=== PATIENT | female | born 1940 | race Caucasian/White ===

== ENCOUNTER → 2016-09-06 | Outpatient (CLI) | payer MEDICARE, OTHER ==
[~2016-09-06] MED LIST: APIX5TAB PO; LORA0.5T PO; LOSA50TA6 PO; OMEP20CA9 PO; OMEP20TA2 PO; ONDA4TAB7 PO; OXYC1TAB7 PO; PROC10TA PO
== END | disposition home or self-care (01) ==
LOC: RAD 10:51
PROVIDERS: ATTEND Internal Medicine
DX: C34.2 Malignant neoplasm of middle lobe, bronchus or lung (principal); J90 Pleural effusion, not elsewhere classified; E04.1 Nontoxic single thyroid nodule; M48.54XA Collapsed vertebra, not elsewhere classified, thoracic region, initial encounter for fracture; M50.30 Other cervical disc degeneration, unspecified cervical region; M47.892 Other spondylosis, cervical region; M25.78 Osteophyte, vertebrae; R59.0 Localized enlarged lymph nodes; R07.9 Chest pain, unspecified; R07.81 Pleurodynia
CPT/HCPCS: 71250; 72125

== ENCOUNTER 2016-09-11 13:38 | Emergency (ER) | payer MEDICARE, OTHER ==
[~2016-09-11] VITALS: Ht 162.6 cm; Wt 73.0 kg
[2016-09-11] MEDS ORDERED: FAMOTIDINE 20 MG/2 ML IVP ONE (14:00)
[2016-09-11] MEDS ORDERED: SODIUM CHLORIDE FLUSH 10ML SYR IVF ONE (14:00)
[2016-09-11] MEDS ORDERED: SODIUM CHLORIDE 0.9% 1,000ML IVBOLUS ONE ×2 (14:00→15:00)
[2016-09-11] MEDS ORDERED: FAMOTIDINE 20 MG/2 ML ONE (14:20)
[2016-09-11 14:34] LABS: ASPARTATE AMINO TRANSFERASE 9 U/L (15-37); BLOOD UREA NITROGEN 23 mg/dL (7-18)
[2016-09-11] MEDS: ONDANSETRON 2MG/ML, 2ML IVPush ONE ×2 (14:38→18:09)
[2016-09-11] MEDS ORDERED: ACETAMINOPHEN 500 MG TABLET ONE (16:13)
[2016-09-11] MEDS ORDERED: ACETAMINOPHEN 325 MG TABLET PO ONE (16:30)
[2016-09-11] MEDS ORDERED: PRED5TAB25 PO (16:50)
[2016-09-11] MEDS ORDERED: SULF1TAB24 PO (16:51)
[2016-09-11] MEDS ORDERED: GABA300C10 PO (17:00)
[2016-09-11] MEDS ORDERED: ONDANSETRON 2MG/ML, 2ML ONE (18:04)
[2016-09-11 19:49] VITALS: BP 137/74
== END 2016-09-11 19:51 | disposition home or self-care (01) ==
LOC: ED 14:47
DX: E86.0 Dehydration (principal); R51 Headache; R11.2 Nausea with vomiting, unspecified; I10 Essential (primary) hypertension; Z87.891 Personal history of nicotine dependence; Z90.710 Acquired absence of both cervix and uterus
CPT/HCPCS: 36415; 70450; 74176; 80053; 81003; 83690; 85025; 85610; 85730; 96361; 96374; 96375; 99285; J2405; J7030; S0028

== ENCOUNTER 2016-09-26 22:59 | Inpatient (IN) | payer MEDICARE, OTHER ==
[~2016-09-26] VITALS: Ht 162.6 cm; Wt 72.5 kg
[~2016-09-26 22:59] MED LIST changes: +GABA300C10 PO; +PRED5TAB25 PO; +SULF1TAB24 PO
[2016-09-26] MEDS ORDERED: HYDR-3240 PO (23:14)
[2016-09-26] MEDS ORDERED: SODIUM CHLORIDE 0.9% 1,000ML IVBOLUS ONE (23:30)
[2016-09-26 23:43] LABS: BLOOD UREA NITROGEN 19 mg/dL (7-18)
[2016-09-26 23:48] LABS: IS PT STATUS REG ER OR PRE ER? YES
[2016-09-26] MEDS ORDERED: methylPREDNISolone SOD SUCC 125 MG/2 ML IVPush STA (23:49)
[2016-09-27] MEDS ORDERED: DIPHENHYDRAMINE 50 MG/ML, 1ML IVPush ONE
[2016-09-27] MEDS ORDERED: methylPREDNISolone SOD SUCC 125 MG/2 ML ONE (00:06)
[2016-09-27] MEDS ORDERED: DIPHENHYDRAMINE 50 MG/ML, 1ML ONE (00:07)
[2016-09-27] MEDS ORDERED: MORPHINE SULFATE 4 MG/ML, 1ML ONE (02:45)
[2016-09-27] MEDS ORDERED: ONDANSETRON 2MG/ML, 2ML ONE (02:45)
[2016-09-27] MEDS ORDERED: ONDANSETRON 2MG/ML, 2ML IVPush ONE (03:00)
[2016-09-27] MEDS ORDERED: MORPHINE SULFATE 4 MG/ML, 1ML IVPush PRN (03:00)
[2016-09-27] MEDS ORDERED: MORPHINE SULFATE 4 MG/ML, 1ML IVPush ONE ×2 (03:00→06:00)
[2016-09-27] MEDS ORDERED: ONDANSETRON 2MG/ML, 2ML IVPush PRN ×2 (03:00→09:00)
[2016-09-27] MEDS ORDERED: OMNIPAQUE 350 MG/ML, 150 ML BOTTLE ONE (04:56)
[2016-09-27 05:00] VITALS: BP 149/93
[2016-09-27] MEDS ORDERED: LORazepam 0.5MG TABLET PO PRN (08:00)
[2016-09-27 08:59] VITALS: BP 147/96
[2016-09-27] MEDS: HYDROcodone/APAP 5/325 TABLET PO PRN ×4 (09:00→21:22)
[2016-09-27] MEDS: ONDANSETRON ODT 4 MG PO PRN ×2 (09:02→15:11)
[2016-09-27] MEDS: GABAPENTIN 300 MG CAPSULE PO SCH ×3 (09:08→20:48)
[2016-09-27] MEDS: APIXABAN 5 MG TABLET PO SCH ×3 (09:09→20:48)
[2016-09-27 09:15] LABS: BLOOD UREA NITROGEN 19 mg/dL (7-18)
[2016-09-27] MEDS ORDERED: LIDOCAINE 1%, 20ML ONE (10:57)
[2016-09-27] MEDS ORDERED: SODIUM BICARBONATE 4.2%, 5ML ONE (10:57)
[2016-09-27 11:46] LABS: CYTOLOGY BODY FLUID RECD INTO PATHOLOGY; CYTOLOGY BODY FLUID SOURCE PLEURAL FLUID
[2016-09-27] MEDS: PREDNISOLONE 5 MG PO SCH (13:16)
[2016-09-27 13:29] VITALS: BP 130/83
[2016-09-27 13:35] LABS: CELLS COUNTED 131; DILUTION 1; WBC SQUARES COUNTED 1
[2016-09-27 20:52] VITALS: BP 129/83
[2016-09-28 01:02] VITALS: BP 126/77
[2016-09-28] MEDS: HYDROcodone/APAP 5/325 TABLET PO PRN ×6 (04:37→21:35)
[2016-09-28 07:40] VITALS: BP 114/72
[2016-09-28] MEDS: APIXABAN 5 MG TABLET PO SCH ×2 (08:46→20:46)
[2016-09-28] MEDS: GABAPENTIN 300 MG CAPSULE PO SCH ×3 (08:46→20:46)
[2016-09-28] MEDS: PREDNISOLONE 5 MG PO SCH (08:54)
[2016-09-28 12:22] VITALS: BP 119/72
[2016-09-28] MEDS ORDERED: IBUPROFEN 200 MG TABLET PO ONE (12:30)
[2016-09-28] MEDS ORDERED: ACETAMINOPHEN 325 MG TABLET PO PRN (12:30)
[2016-09-28 20:25] VITALS: BP 129/82
[2016-09-28] MEDS: ONDANSETRON ODT 4 MG PO PRN (20:45)
[2016-09-29 00:38] VITALS: BP 127/77
[2016-09-29] MEDS: HYDROcodone/APAP 5/325 TABLET PO PRN ×2 (01:13→05:26)
[2016-09-29 08:30] VITALS: BP 121/67
[2016-09-29] MEDS: GABAPENTIN 300 MG CAPSULE PO SCH (09:45)
[2016-09-29] MEDS: APIXABAN 5 MG TABLET PO SCH (09:45)
[2016-09-29] MEDS: PREDNISOLONE 5 MG PO SCH (09:46)
[2016-09-29] MEDS ORDERED: OMEPRAZOLE 20 MG CAPSULE.DR PO SCH (09:48)
[2016-09-29] MEDS: OXYcodone IR 5MG TABLET PO PRN ×2 (10:19→14:56)
[2016-09-29] MEDS ORDERED: OXYC5TAB3 PO (11:00)
== END 2016-09-29 15:10 | disposition home or self-care (01) | DRG 181 ==
LOC: ED 23:00 → EDIP 09-27 02:44 → 3NW 09-27 03:35
PROVIDERS: ADMIT Internal Medicine; ATTEND Internal Medicine
PROC: 0W993ZZ Drainage of Right Pleural Cavity, Percutaneous Approach (ICD-10-PCS; principal; 2016-09-27)
PROC: BB4BZZZ Ultrasonography of Pleura (ICD-10-PCS; 2016-09-27)
DX: C34.90 Malignant neoplasm of unspecified part of unspecified bronchus or lung (principal); R65.10 Systemic inflammatory response syndrome (SIRS) of non-infectious origin without acute organ dysfunction; D68.69 Other thrombophilia; M48.54XA Collapsed vertebra, not elsewhere classified, thoracic region, initial encounter for fracture; J91.0 Malignant pleural effusion; I10 Essential (primary) hypertension; M25.511 Pain in right shoulder; J38.3 Other diseases of vocal cords; R07.89 Other chest pain; M13.811 Other specified arthritis, right shoulder; Z79.01 Long term (current) use of anticoagulants; Z85.118 Personal history of other malignant neoplasm of bronchus and lung; Z86.711 Personal history of pulmonary embolism; Z86.718 Personal history of other venous thrombosis and embolism; Z87.891 Personal history of nicotine dependence; Z92.21 Personal history of antineoplastic chemotherapy; Z92.3 Personal history of irradiation; Z90.710 Acquired absence of both cervix and uterus; Z88.1 Allergy status to other antibiotic agents
CPT/HCPCS: 32555; 36415; 70491; 71275; 80048; 82040; 82945; 83615; 83986; 84157; 84443; 84484; 85025; 87070; 87075; 87102; 87116; 87205; 87206; 88112; 88305; 89051; 93005; 96374; 96375; J2405; J3490; Q0162; Q9967; J1200; J2930; J7030

== ENCOUNTER → 2016-10-04 | Outpatient (CLI) | payer MEDICARE, OTHER ==
[~2016-10-04] MED LIST changes: +HYDR-3240 PO; +OXYC5TAB3 PO
== END | disposition home or self-care (01) ==
LOC: RAD 14:29
PROVIDERS: ATTEND Internal Medicine
DX: J90 Pleural effusion, not elsewhere classified (principal); J98.11 Atelectasis; C34.2 Malignant neoplasm of middle lobe, bronchus or lung; R53.83 Other fatigue; Z79.01 Long term (current) use of anticoagulants
CPT/HCPCS: 71020

== ENCOUNTER → 2016-10-07 | Outpatient (CLI) | payer MEDICARE, OTHER ==
[~2016-10-07] MED LIST changes: +LIDOCAINE 1%, 20ML ONE; +SODIUM BICARBONATE 4.2%, 5ML ONE
== END | disposition home or self-care (01) ==
LOC: RAD 14:42
PROVIDERS: ATTEND Internal Medicine
DX: R18.0 Malignant ascites (principal); J91.0 Malignant pleural effusion; C34.2 Malignant neoplasm of middle lobe, bronchus or lung
CPT/HCPCS: 32555; J3490

== ENCOUNTER → 2016-10-11 | Outpatient (CLI) | payer MEDICARE, OTHER | END | disposition home or self-care (01) | LOC: RAD 14:03 | PROVIDERS: ATTEND Internal Medicine | DX: C34.2 Malignant neoplasm of middle lobe, bronchus or lung (principal); J90 Pleural effusion, not elsewhere classified; J98.11 Atelectasis; I51.7 Cardiomegaly; S22.040A Wedge compression fracture of fourth thoracic vertebra, initial encounter for closed fracture; X58.XXXA Exposure to other specified factors, initial encounter; Y93.89 Activity, other specified; Y92.89 Other specified places as the place of occurrence of the external cause; Y99.8 Other external cause status | CPT/HCPCS: 32555; 71020; J3490 ==

== ENCOUNTER 2016-10-14 20:50 | Inpatient (IN) | payer MEDICARE, OTHER ==
[~2016-10-14] VITALS: Ht 162.6 cm; Wt 76.1 kg
[~2016-10-14 20:50] MED LIST changes: -LIDOCAINE 1%, 20ML ONE; -SODIUM BICARBONATE 4.2%, 5ML ONE
[2016-10-14] MEDS ORDERED: OXYC15TA60 PO (21:03)
[2016-10-14] MEDS ORDERED: LORA1TAB PO (21:03)
[2016-10-14] MEDS ORDERED: ONDA4TAB10 PO (21:03)
[2016-10-14] MEDS ORDERED: ONDANSETRON 2MG/ML, 2ML IVPush ONE (22:00)
[2016-10-14] MEDS ORDERED: ONDANSETRON 2MG/ML, 2ML ONE (22:04)
[2016-10-14] MEDS ORDERED: HYDROmorphone 1 MG/ML, 1ML ONE ×2 (22:04→23:23)
[2016-10-14] MEDS: HYDROmorphone 1 MG/ML, 1ML IVPush PRN ×2 (22:10→23:26)
[2016-10-14 22:35] LABS: ASPARTATE AMINO TRANSFERASE 12 U/L (15-37); BLOOD UREA NITROGEN 15 mg/dL (7-18)
[2016-10-15] MEDS ORDERED: HYDROmorphone 1 MG/ML, 1ML IV ONE
[2016-10-15] MEDS ORDERED: LORazepam 1MG TABLET PO SCH (00:30)
[2016-10-15] MEDS ORDERED: HYDROmorphone 2 MG/ML, 1ML IVPush PRN ×2 (00:30→17:30)
[2016-10-15 00:38] VITALS: BP 147/84
[2016-10-15] MEDS: SODIUM CHLORIDE 0.9% 1,000 ML IV SCH ×3 (00:44→21:41)
[2016-10-15] MEDS: GABAPENTIN 300 MG CAPSULE PO SCH ×4 (00:48→21:39)
[2016-10-15] MEDS: GUAIFENESIN 100 MG/5 ML, 10ML UDC PO SCH ×4 (00:48→21:38)
[2016-10-15 02:31] VITALS: BP 134/84
[2016-10-15] MEDS: ONDANSETRON ODT 4 MG PO SCH (05:36)
[2016-10-15] MEDS: APIXABAN 5 MG TABLET PO SCH ×2 (08:08→21:39)
[2016-10-15] MEDS: SENNA/DOCUSATE TABLET PO SCH (08:08)
[2016-10-15] MEDS: OMEPRAZOLE 20 MG CAPSULE.DR PO SCH (08:08)
[2016-10-15 08:49] VITALS: BP 145/74
[2016-10-15] MEDS ORDERED: OxyconTIN ER 15 MG TAB.ER PO SCH (09:00)
[2016-10-15] MEDS ORDERED: prednisOLONE 15 MG/5 ML ORAL SOLN PO SCH (09:00)
[2016-10-15] MEDS ORDERED: ACETAMINOPHEN 325 MG TABLET PO PRN (14:00)
[2016-10-15] MEDS ORDERED: PROMETHAZINE 25 MG/ML, 1ML IM PRN (14:00)
[2016-10-15 14:32] VITALS: BP 135/89
[2016-10-15] MEDS ORDERED: OXYcodone IR 5MG TABLET PO PRN (16:30)
[2016-10-15] MEDS: LIDODERM 5% PATCH TD SCH (16:53)
[2016-10-15 20:08] VITALS: BP 140/79
[2016-10-15] MEDS: HYDROcodone/APAP 5/325 TABLET PO PRN (20:14)
[2016-10-15] MEDS: ACETAMINOPHEN 325 MG TABLET PO SCH (20:14)
[2016-10-15] MEDS ORDERED: OxyconTIN ER 20 MG TAB.ER ONE (21:34)
[2016-10-15] MEDS: OxyconTIN ER 15 MG TAB.ER PO SCH (21:39)
[2016-10-15] MEDS: DIAZEPAM 2 MG TABLET PO SCH (21:39)
[2016-10-16 01:38] VITALS: BP 131/72
[2016-10-16] MEDS: LORazepam 1MG TABLET PO PRN ×2 (02:40→08:53)
[2016-10-16] MEDS: ACETAMINOPHEN 325 MG TABLET PO SCH ×4 (02:41→21:27)
[2016-10-16 04:32] LABS: BLOOD UREA NITROGEN 14 mg/dL (7-18)
[2016-10-16 08:00] VITALS: BP 141/91
[2016-10-16] MEDS ORDERED: OxyconTIN ER 10 MG TAB.ER ONE (08:48)
[2016-10-16] MEDS: SENNA/DOCUSATE TABLET PO SCH (08:52)
[2016-10-16] MEDS: APIXABAN 5 MG TABLET PO SCH (08:52)
[2016-10-16] MEDS: GUAIFENESIN 100 MG/5 ML, 10ML UDC PO SCH ×3 (08:53→21:26)
[2016-10-16] MEDS: GABAPENTIN 300 MG CAPSULE PO SCH ×3 (08:53→21:26)
[2016-10-16] MEDS: DEXAMETHASONE INTENSOL 1 MG/ML ORAL SOL PO SCH (08:53)
[2016-10-16] MEDS: OMEPRAZOLE 20 MG CAPSULE.DR PO SCH (08:53)
[2016-10-16] MEDS: SODIUM CHLORIDE 0.9% 1,000 ML IV SCH ×2 (08:54→18:48)
[2016-10-16] MEDS: OxyconTIN ER 15 MG TAB.ER PO SCH ×2 (08:54→21:00)
[2016-10-16 14:00] VITALS: BP 164/101
[2016-10-16] MEDS: LIDODERM 5% PATCH TD SCH (14:07)
[2016-10-16] MEDS: morphine SULFATE ORAL.CONC 20 MG/ML SL PRN ×5 (14:38→23:02)
[2016-10-16 19:46] VITALS: BP 165/99
[2016-10-16] MEDS ORDERED: OxyconTIN ER 20 MG TAB.ER ONE (21:16)
[2016-10-16] MEDS: DIAZEPAM 2 MG TABLET PO SCH (21:27)
[2016-10-16] MEDS ORDERED: HEPARIN 5,000 UNITS/ML, 1ML IV PRN (22:00)
[2016-10-16] MEDS ORDERED: HEPARIN 5,000 UNITS/ML, 1ML IV ONE (22:00)
[2016-10-16] MEDS: HEPARIN 25,000 UNITS/500ML PMX 500 ML IV PRN (22:54)
[2016-10-16] MEDS: LORazepam INTENSOL 2 MG/ML BC PRN (23:48)
[2016-10-17 01:29] VITALS: BP 143/98
[2016-10-17] MEDS ORDERED: ALBUTEROL/IPRATROPIUM 2.5MG/0.5MG, 3 ML NPPB PRN (01:30)
[2016-10-17] MEDS: ACETAMINOPHEN 325 MG TABLET PO SCH ×4 (02:00→20:24)
[2016-10-17] MEDS: SODIUM CHLORIDE 0.9% 1,000 ML IV SCH (05:34)
[2016-10-17] MEDS: LORazepam INTENSOL 2 MG/ML BC PRN ×2 (08:59→20:38)
[2016-10-17] MEDS: FLUTICASONE NASAL SPRAY 16GM NAS SCH (09:00)
[2016-10-17 09:01] VITALS: BP 143/86
[2016-10-17] MEDS ORDERED: FUROSEMIDE 20 MG/2 ML IV ONE ×2 (09:30→16:00)
[2016-10-17] MEDS: morphine SULFATE ORAL.CONC 20 MG/ML SL PRN (09:37)
[2016-10-17] MEDS: DEXAMETHASONE INTENSOL 1 MG/ML ORAL SOL PO SCH (09:39)
[2016-10-17] MEDS: OMEPRAZOLE 20 MG CAPSULE.DR PO SCH (09:52)
[2016-10-17] MEDS: SENNA/DOCUSATE TABLET PO SCH (09:52)
[2016-10-17] MEDS: GUAIFENESIN 100 MG/5 ML, 10ML UDC PO SCH ×3 (09:52→20:24)
[2016-10-17] MEDS: GABAPENTIN 300 MG CAPSULE PO SCH ×3 (11:31→20:23)
[2016-10-17] MEDS: OxyconTIN ER 20 MG TAB.ER PO SCH ×2 (11:31→20:24)
[2016-10-17 14:00] VITALS: BP 135/85
[2016-10-17] MEDS: LIDODERM 5% PATCH TD SCH (14:00)
[2016-10-17] MEDS ORDERED: LORazepam 2 MG/ML, 1ML ONE (17:25)
[2016-10-17 19:58] VITALS: BP 133/84
[2016-10-17] MEDS: ALBUTEROL/IPRATROPIUM 2.5MG/0.5MG, 3 ML NPPB SCH (20:50)
[2016-10-17] MEDS: DIAZEPAM 2 MG TABLET PO SCH (22:02)
[2016-10-18] MEDS: LORazepam INTENSOL 2 MG/ML BC PRN (00:37)
[2016-10-18] MEDS: HEPARIN 25,000 UNITS/500ML PMX 500 ML IV PRN ×2 (00:37→13:47)
[2016-10-18 01:25] VITALS: BP 135/75
[2016-10-18] MEDS: ACETAMINOPHEN 325 MG TABLET PO SCH ×4 (02:04→20:45)
[2016-10-18] MEDS: ALBUTEROL/IPRATROPIUM 2.5MG/0.5MG, 3 ML NPPB SCH ×4 (02:13→21:20)
[2016-10-18 04:46] LABS: BLOOD UREA NITROGEN 13 mg/dL (7-18)
[2016-10-18 07:50] VITALS: BP 114/76
[2016-10-18] MEDS: FUROSEMIDE 20 MG/2 ML IV SCH ×2 (08:05→18:13)
[2016-10-18] MEDS: GABAPENTIN 300 MG CAPSULE PO SCH ×3 (08:13→20:45)
[2016-10-18] MEDS: DEXAMETHASONE INTENSOL 1 MG/ML ORAL SOL PO SCH (08:13)
[2016-10-18] MEDS: GUAIFENESIN 100 MG/5 ML, 10ML UDC PO SCH ×3 (08:13→20:45)
[2016-10-18] MEDS: OxyconTIN ER 20 MG TAB.ER PO SCH ×2 (08:13→20:45)
[2016-10-18] MEDS: OMEPRAZOLE 20 MG CAPSULE.DR PO SCH (08:14)
[2016-10-18] MEDS: SENNA/DOCUSATE TABLET PO SCH (08:14)
[2016-10-18] MEDS: SODIUM CHLORIDE NASAL SPRAY 45ML BOTTLE NAS SCH (09:00)
[2016-10-18] MEDS ORDERED: PROPOFOL 10 MG/ML, 20ML ONE ×2 (09:14)
[2016-10-18] MEDS ORDERED: CEFAZOLIN 1,000 MG ONE ×2 (09:14)
[2016-10-18] MEDS ORDERED: ONDANSETRON 2MG/ML, 2ML IVPush PRN (10:00)
[2016-10-18] MEDS ORDERED: FENTANYL PF 100 MCG/2ML IV PRN (10:00)
[2016-10-18] MEDS: FLUTICASONE NASAL SPRAY 16GM NAS SCH (11:14)
[2016-10-18] MEDS: LIDODERM 5% PATCH TD SCH (14:06)
[2016-10-18] MEDS ORDERED: POTASSIUM CHLORIDE 20 MEQ TAB.ER.PRT PO ONE (15:00)
[2016-10-18 18:29] VITALS: BP 135/75
[2016-10-18 19:47] VITALS: BP 114/63
[2016-10-18] MEDS: DIAZEPAM 2 MG TABLET PO SCH (20:45)
[2016-10-19] MEDS: ACETAMINOPHEN 325 MG TABLET PO SCH ×4 (01:51→21:35)
[2016-10-19 02:02] VITALS: BP 129/83
[2016-10-19] MEDS: ALBUTEROL/IPRATROPIUM 2.5MG/0.5MG, 3 ML NPPB SCH ×4 (02:45→19:40)
[2016-10-19 05:11] LABS: BLOOD UREA NITROGEN 15 mg/dL (7-18)
[2016-10-19] MEDS: GABAPENTIN 300 MG CAPSULE PO SCH ×3 (08:15→21:17)
[2016-10-19] MEDS: GUAIFENESIN 100 MG/5 ML, 10ML UDC PO SCH ×3 (08:15→21:17)
[2016-10-19] MEDS: DEXAMETHASONE INTENSOL 1 MG/ML ORAL SOL PO SCH (08:15)
[2016-10-19] MEDS: OxyconTIN ER 20 MG TAB.ER PO SCH ×2 (08:15→21:17)
[2016-10-19] MEDS: FLUTICASONE NASAL SPRAY 16GM NAS SCH (08:15)
[2016-10-19] MEDS: OMEPRAZOLE 20 MG CAPSULE.DR PO SCH (08:15)
[2016-10-19] MEDS: SENNA/DOCUSATE TABLET PO SCH (08:16)
[2016-10-19] MEDS: ONDANSETRON 2MG/ML, 2ML IVPush PRN (08:16)
[2016-10-19 08:34] VITALS: BP 118/77
[2016-10-19] MEDS: SODIUM CHLORIDE NASAL SPRAY 45ML BOTTLE NAS SCH (09:00)
[2016-10-19] MEDS ORDERED: POTASSIUM CHLORIDE 20 MEQ TAB.ER.PRT PO ONE (12:00)
[2016-10-19] MEDS: LIDODERM 5% PATCH TD SCH (13:43)
[2016-10-19] MEDS: FUROSEMIDE 20 MG TABLET PO SCH (13:43)
[2016-10-19 13:53] VITALS: BP 133/83
[2016-10-19] MEDS: HEPARIN 25,000 UNITS/500ML PMX 500 ML IV PRN (16:46)
[2016-10-19] MEDS: LORazepam INTENSOL 2 MG/ML BC PRN (16:48)
[2016-10-19 19:50] VITALS: BP 134/84
[2016-10-19] MEDS: DIAZEPAM 2 MG TABLET PO SCH (21:18)
[2016-10-20] MEDS: ALBUTEROL/IPRATROPIUM 2.5MG/0.5MG, 3 ML NPPB SCH ×3 (02:15→19:46)
[2016-10-20] MEDS: ACETAMINOPHEN 325 MG TABLET PO SCH ×4 (02:31→19:26)
[2016-10-20 02:51] VITALS: BP 121/80
[2016-10-20] MEDS: LORazepam INTENSOL 2 MG/ML BC PRN (02:54)
[2016-10-20 07:33] VITALS: BP_SYST 114; BP_SYST 99; BP_DIAS 47; BP_DIAS 58
[2016-10-20] MEDS: SENNA/DOCUSATE TABLET PO SCH (08:05)
[2016-10-20] MEDS: OMEPRAZOLE 20 MG CAPSULE.DR PO SCH (08:05)
[2016-10-20] MEDS: GABAPENTIN 300 MG CAPSULE PO SCH ×3 (08:05→21:06)
[2016-10-20] MEDS: FLUTICASONE NASAL SPRAY 16GM NAS SCH (08:05)
[2016-10-20] MEDS: OxyconTIN ER 20 MG TAB.ER PO SCH ×2 (08:05→21:06)
[2016-10-20] MEDS: GUAIFENESIN 100 MG/5 ML, 10ML UDC PO SCH ×3 (08:05→21:05)
[2016-10-20] MEDS: FUROSEMIDE 20 MG TABLET PO SCH (08:05)
[2016-10-20] MEDS: DEXAMETHASONE INTENSOL 1 MG/ML ORAL SOL PO SCH (08:06)
[2016-10-20] MEDS: SODIUM CHLORIDE NASAL SPRAY 45ML BOTTLE NAS SCH (08:06)
[2016-10-20] MEDS: APIXABAN 5 MG TABLET PO SCH ×2 (12:19→21:06)
[2016-10-20] MEDS: LIDODERM 5% PATCH TD SCH (13:13)
[2016-10-20] MEDS ORDERED: CALCIUM CARBONATE 500 MG TAB.CHEW PO PRN (13:30)
[2016-10-20 13:56] VITALS: BP 132/84
[2016-10-20] MEDS ORDERED: POTASSIUM CHLORIDE 20 MEQ TAB.ER.PRT PO ONE (14:00)
[2016-10-20] MEDS: HYDROcodone/APAP 5/325 TABLET PO PRN ×2 (15:12→22:41)
[2016-10-20] MEDS: ONDANSETRON ODT 4 MG PO SCH ×2 (18:27→22:48)
[2016-10-20 18:29] VITALS: BP 118/82
[2016-10-20] MEDS ORDERED: ALBUTEROL/IPRATROPIUM 2.5MG/0.5MG, 3 ML ONE (19:39)
[2016-10-20] MEDS: DIAZEPAM 2 MG TABLET PO SCH (21:06)
[2016-10-20] MEDS: ONDANSETRON 2MG/ML, 2ML IVPush PRN (22:41)
[2016-10-21 01:43] VITALS: BP 127/85
[2016-10-21] MEDS: ACETAMINOPHEN 325 MG TABLET PO SCH ×3 (01:48→13:48)
[2016-10-21 04:46] VITALS: BP 113/65
[2016-10-21] MEDS: morphine SULFATE ORAL.CONC 20 MG/ML SL PRN (04:55)
[2016-10-21 05:35] LABS: BLOOD UREA NITROGEN 14 mg/dL (7-18)
[2016-10-21] MEDS: ALBUTEROL/IPRATROPIUM 2.5MG/0.5MG, 3 ML NPPB SCH (06:40)
[2016-10-21 07:38] VITALS: BP 134/82
[2016-10-21] MEDS: DEXAMETHASONE INTENSOL 1 MG/ML ORAL SOL PO SCH (07:46)
[2016-10-21] MEDS: APIXABAN 5 MG TABLET PO SCH (07:46)
[2016-10-21] MEDS: GABAPENTIN 300 MG CAPSULE PO SCH ×2 (07:46→15:55)
[2016-10-21] MEDS: SODIUM CHLORIDE NASAL SPRAY 45ML BOTTLE NAS SCH (07:46)
[2016-10-21] MEDS: FLUTICASONE NASAL SPRAY 16GM NAS SCH (07:46)
[2016-10-21] MEDS: OxyconTIN ER 20 MG TAB.ER PO SCH (07:46)
[2016-10-21] MEDS: OMEPRAZOLE 20 MG CAPSULE.DR PO SCH (07:46)
[2016-10-21] MEDS: SENNA/DOCUSATE TABLET PO SCH (07:46)
[2016-10-21] MEDS: FUROSEMIDE 20 MG TABLET PO SCH (07:46)
[2016-10-21] MEDS: GUAIFENESIN 100 MG/5 ML, 10ML UDC PO SCH ×2 (07:46→15:55)
[2016-10-21] MEDS: LORazepam INTENSOL 2 MG/ML BC PRN ×2 (07:59→18:04)
[2016-10-21] MEDS: LIDODERM 5% PATCH TD SCH (13:48)
[2016-10-21 13:58] VITALS: BP 141/90
[2016-10-21] MEDS ORDERED: OXYC20TA42 PO (15:14)
[2016-10-21] MEDS ORDERED: LIDO700A5 TD (15:14)
== END 2016-10-21 18:14 | disposition home health service (06) | DRG 180 ==
LOC: ED 22:53 → EDIP 23:19 → 3NW 10-15 00:26
PROVIDERS: ADMIT Internal Medicine
PROC: 0B9N00Z Drainage of Right Pleura with Drainage Device, Open Approach (ICD-10-PCS; principal; 2016-10-18 09:00)
DX: C34.91 Malignant neoplasm of unspecified part of right bronchus or lung (principal); J96.21 Acute and chronic respiratory failure with hypoxia; E43 Unspecified severe protein-calorie malnutrition; J91.0 Malignant pleural effusion; J98.11 Atelectasis; F41.9 Anxiety disorder, unspecified; H54.7 Unspecified visual loss; I10 Essential (primary) hypertension; K21.9 Gastro-esophageal reflux disease without esophagitis; Z51.5 Encounter for palliative care; Z80.0 Family history of malignant neoplasm of digestive organs; Z80.51 Family history of malignant neoplasm of kidney; Z85.51 Personal history of malignant neoplasm of bladder; Z85.828 Personal history of other malignant neoplasm of skin; Z86.711 Personal history of pulmonary embolism; Z86.718 Personal history of other venous thrombosis and embolism; Z91.041 Radiographic dye allergy status; Z87.891 Personal history of nicotine dependence; Z92.3 Personal history of irradiation; Z92.21 Personal history of antineoplastic chemotherapy; Z99.81 Dependence on supplemental oxygen; Z90.710 Acquired absence of both cervix and uterus; Z79.899 Other long term (current) drug therapy; Z88.8 Allergy status to other drugs, medicaments and biological substances; Z68.28 Body mass index [BMI] 28.0-28.9, adult; R59.1 Generalized enlarged lymph nodes; M54.2 Cervicalgia
CPT/HCPCS: 36415; 71010; 71250; 76770; 80048; 80053; 83735; 83880; 85025; 85520; 93005; 94640; 96374; J0690; J1170; J1644; J2250; J2405; J2550; J2704; J7620; Q0162; J1940; J7030; J7510